=== PATIENT | male | born 1970 | race Caucasian/White ===

== ENCOUNTER 2018-09-26 10:55 | Day surgery (SDC) | payer BC, SELFPAY ==
[2018-09-26 11:09] VITALS: BP 142/90; PULSE 70; RESP 20; TEMP 36.3; O2SAT 97
[2018-09-26] MEDS: Lactated Ringers 1,000 ML 30 ML IV (11:33)
--- NOTE | 2018-09-26 11:36 | HPE_ITS ---
Date of service: 09/26/18 Time of Service: 11:31 Assessment and Plan (1) Screening for colon cancer: Current visit: No Status: Acute I reviewed the colonoscopy procedure with , and discussed the risks of the procedure with him. All his questions were answered to his satisfaction. Consent was obtained to proceed with colonoscopy. History of Present Illness Chief Complaint: Personal history of colon polyps Narrative: 47 y/o Male presents for colonoscopy pre-op. Last Colonoscopy was performed several years prior (date unknown) which was remarkable for polyps. Denies family history of colon cancer. Denies changes in bowel habits. Reports occasional blood smeared stools associated with hemorrhoids. Denies diarrhea, constipation, melena. He denies constituitional symptoms. Review of Systems Review of Systems Constitutional: Denies fever, chills, malaise, fatigue, weight loss, sweating; Neurological: denies headache, seizures, syncope; weakness Eyes: denies loss of vision, double vision, blurry vision,; Ears,nose, throat: denies loss of hearing, tinnitus, vertigo, epistaxis, hoarseness, throat swelling. Cardiac: denies chest pain with exertion, palpation, pain shooting from chest into arm. Respiratory: denies cough, sputum production, chest congestion, wheezing. Gastrointestinal: denies abdominal pain, dysphagia, nausea, vomiting, hematamesis, hematochezia, melena. Genitourinary: denies frequency, urgency, hesitancy, incontinence, and dysuria. Musculoskeletal: denies arthralgia, myalgia, fracture, joint pain, joint swelling, back pain. Psychiatric: denies anxiety, depression, difficulty concentrating, difficulty sleeping, irritability. All systems reviewed & are unremarkable except as noted in HPI and below PFSH Family History Other Diabetes Heart disease Medical History Anxiety Disequilibrium Hyperlipidemia Hypertension JESSICA (obstructive sleep apnea) Obesity Skin mole Vertigo Social History Smoking/Tobacco Use Status: Never Meds Home Medications Medication Instructions Recorded Confirmed Type bupropion HCl 300 mg PO DAILY tab-cap 07/29/14 09/26/18 History escitalopram oxalate [Lexapro] 10 mg PO DAILY tab-cap 07/29/14 09/26/18 History lisinopril 10 mg PO DAILY tab-cap 03/22/16 09/26/18 History aspirin [Aspirin Low-Strength] 81 mg PO DAILY tab-cap 05/01/16 09/26/18 History multivitamin [Men's Multi-Vitamin] 1 ea PO 05/01/16 08/11/18 History Allergies Allergy/AdvReac Type Severity Reaction Status Date / Time No Known Allergies Allergy Verified 09/26/18 11:14 Exam Narrative Exam Narrative: General: Awake, alert, oriented x 3, well groomed Neurological: cranial nerves II-12 grossly intact, moves all extremities, no focal deficits. HEENT: Normacephalic, atruamatic, pupils are equal, round, and reactive to light , extraocular muscles intact, mucousa moist and pink. Neck: normal visual inspection, supple, trachea midline. Heart: [regular rate, rhythm] Respiratory: No wheezing, cough, sputum production, or chest congestion. breathing unlabored. Abdomen: Soft, non-tender, non-distended, no hernias. Extremities: no cyanosis, clubbing or edema. Integument: warm, dry, normal turgor, no rashes, or lesion. Results Last Vital Signs Temp 36.3 C L 09/26/18 11:09 Pulse 70 09/26/18 11:09 Resp 20 09/26/18 11:09 BP 142/90 H 09/26/18 11:09 Pulse Ox 97 09/26/18 11:09
--- NOTE | 2018-09-26 12:15 | COLE_ITS ---
Date of service: 09/26/18 Time of Service: 12:14 Colonoscopy Report Date of procedure: 09/26/18 Pre-op diagnosis general: Personal history of colon polyps Post-op diagnosis procedure note: other (Normal colonoscopy to the cecum) Procedure: Colonoscopy to the cecum Surgeon: Williams Valladares Anesthesia proc note operative: MAC (William Yadav CRNA; ASA 2 Mallampati class II) Estimated blood loss (mL): 0 Pathology: none sent Complications: None Disposition: same day Indications: 47 y/o Male presents for colonoscopy pre-op. Last Colonoscopy was performed several years prior (date unknown) which was remarkable for polyps. Denies family history of colon cancer. Denies changes in bowel habits. Reports occasional blood smeared stools associated with hemorrhoids. Denies diarrhea, constipation, melena. He denies constituitional symptoms. Prep: Miralax/Dulcolax (Prep quality good) Procedure Start Time: 10:25 Procedure End Time: 10:45 Retraction Time: 11 Findings: In examining the colon from cecum to anus, no abnormalities were noted. It sounds like Procedure Description: The patient was seen in the day surgery waiting area. His identification was confirmed, and procedure checked. He was then brought to the procedure room. Monitoring for telemetry, blood pressure, oxygen saturation, and end tidal CO2 monitoring were applied. An appropriate time out was performed to confirm, identification, allergies, medication, procedure, was performed. Sedation was titrated for affect by the INSIDE PLANT SUPERVISOR; Once adequate sedation was achieved, I performed a inspection of the external perineum, and a digitial rectal examination. No significant external abnormalities were noted. On digital rectal examination, there was no blood, no masses, good rectal tone, and a normal prostate. I advanced the colonoscope from the anus to the cecum under direct visualization. The cecum was identified by the ileal-cecal valve, and the appendiceal orifice. The scope was then withdrawn in circumferential manner from the cecum to the rectum. No abnormalites were noted in the colon. The scope was then withdrawn into the rectum, and retroflexed. No abnormalities were noted of the rectum or anorectal junction. The scope was then withdrawn, terminating the procedure. There were no complications during the procedure, and the patient tolerated the procedure well. He was returned to the day surgery recovery area in good condition. Plan: Will continue with routine screening for colorectal cancer according to current consensus guidelines, which is currently 10 years.
--- NOTE | 2018-09-26 12:59 | W.PM.DSUDISC ---
Discharge Plan Disposition Patient Disposition: HOME Condition: Good Discharge Details Reason For Visit: Colorectal cancer screening Attending Provider: Williams Valladares Primary Care Provider: George Crenshaw Home Meds and New Rx's Prescriptions: Continue bupropion HCl 150 MG tablet extended release 12 hr 300 mg PO DAILY RF: 0 escitalopram oxalate [Lexapro] 10 MG tablet 10 mg PO DAILY RF: 0 lisinopril 5 MG tablet 10 mg PO DAILY RF: 0 multivitamin [Men's Multi-Vitamin] 1 EACH tablet 1 ea PO RF: 0 aspirin [Aspirin Low-Strength] 81 MG tablet,chewable 81 mg PO DAILY RF: 0 Discharge Instructions Instructions: Colonoscopy (DC) Stand Alone Forms: Colonoscopy Post Instructions, Tello [place] (DSU) Activity:: Activity as Tolerated Diet:: As Tolerated Discharge Orders Discharge Orders: Discharge Order (Routine); Ordered 09/26/18 Ordered By: Williams Valladares DS: Diagnosis Discharge Diagnosis (1) Screening for colon cancer: Status: Acute Asessment and Plan: Colonoscopy performed: Colonoscopy Report Date of procedure: 09/26/18 Pre-op diagnosis general: Personal history of colon polyps Post-op diagnosis: other (Normal colonoscopy to the cecum) Procedure: Colonoscopy to the cecum Surgeon: Williams Valladares Anesthesia: MAC (William Yadav CRNA; ASA 2 Mallampati class II) Estimated blood loss (mL): 0 Pathology: none sent Complications: None Disposition: same day Indications: 47 y/o Male presents for colonoscopy pre-op. Last Colonoscopy was performed several years prior (date unknown) which was remarkable for polyps. Denies family history of colon cancer. Denies changes in bowel habits. Reports occasional blood smeared stools associated with hemorrhoids. Denies diarrhea, constipation, melena. He denies constituitional symptoms. Prep: Miralax/Dulcolax (Prep quality good) Procedure Start Time: 10:25 Procedure End Time: 10:45 Retraction Time: 11 Findings: In examining the colon from cecum to anus, no abnormalities were noted. It sounds like Procedure Description: The patient was seen in the day surgery waiting area. His identification was confirmed, and procedure checked. He was then brought to the procedure room. Monitoring for telemetry, blood pressure, oxygen saturation, and end tidal CO2 monitoring were applied. An appropriate time out was performed to confirm, identification, allergies, medication, procedure, was performed. Sedation was titrated for affect by the RIDES ATTENDANT; Once adequate sedation was achieved, I performed a inspection of the external perineum, and a digitial rectal examination. No significant external abnormalities were noted. On digital rectal examination, there was no blood, no masses, good rectal tone, and a normal prostate. I advanced the colonoscope from the anus to the cecum under direct visualization. The cecum was identified by the ileal-cecal valve, and the appendiceal orifice. The scope was then withdrawn in circumferential manner from the cecum to the rectum. No abnormalites were noted in the colon. The scope was then withdrawn into the rectum, and retroflexed. No abnormalities were noted of the rectum or anorectal junction. The scope was then withdrawn, terminating the procedure. There were no complications during the procedure, and the patient tolerated the procedure well. He was returned to the day surgery recovery area in good condition. Plan: Will continue with routine screening for colorectal cancer according to current consensus guidelines, which is currently 10 years.
[2018-09-26 13:22] VITALS: BP 132/86; PULSE 64; RESP 18; TEMP 36.4; O2SAT 98
== END 2018-09-26 13:45 | disposition home or self-care (01) ==
PROVIDERS: PCP Internal Medicine; Visit Provider Surgery
PROC: 0DJD8ZZ Inspection of Lower Intestinal Tract, Via Natural or Artificial Opening Endoscopic (ICD-10-PCS; CPT 45378; principal; 2018-09-26 12:45)
DX: Z12.11 Encounter for screening for malignant neoplasm of colon (principal); Z86.010 Personal history of colon polyps
CPT/HCPCS: 45378; NC

== ENCOUNTER 2019-01-12 16:36 | Outpatient (REF) | payer BC, SELFPAY ==
[2019-01-12 22:26] LABS: Anion Gap 7.5 mmol/L (3-11); BUN 21 mg/dL (7-18); CO2 29.5 mmol/L (21.0-32.0); CREATININE 1.14 mg/dL (0.70-1.30); Calcium 9.3 mg/dL (8.5-10.1); Chloride 101 mmol/L (98-107); Cholesterol 219 mg/dL (50-200); Glucose 86 mg/dL (70-100); HDL Cholesterol 38 mg/dL (40-60); LDL CHOLESTEROL 156 mg/dL (<100); Potassium 4.2 mmol/L (3.5-5.1); Sodium 138 mmol/L (136-145); Triglyceride 143 mg/dL (30-150)
== END 2019-01-12 16:56 ==
LOC: NCHCN 16:36
PROVIDERS: PCP Internal Medicine; Visit Provider Internal Medicine
DX: I10 Essential (primary) hypertension (principal); E78.5 Hyperlipidemia, unspecified; R42 Dizziness and giddiness; F41.9 Anxiety disorder, unspecified; E66.9 Obesity, unspecified
CPT/HCPCS: 80048; 80061; 83721

== ENCOUNTER 2019-03-23 09:58 | Outpatient (REF) | payer BC, SELFPAY ==
[2019-03-23 13:42] LABS: Abs Immature Grans 0.02 k/cumm (0.0-0.09); Absolute Basophil Count 0.03 k/cumm (0.0-0.2); Absolute Eosinophil Count 0.17 k/cumm (0.0-0.7); Absolute Lymphocyte Count 1.63 k/cumm (1.2-3.4); Absolute Monocyte Count 0.59 k/cumm (0.11-0.7); Absolute Neutrophil Count 3.43 k/cumm (1.2-6.7); Basophils % 0.5; Eosinophils % 2.9; HCT 45.8 % (40.0-50.0); Immature Grans % 0.3; Lymphocytes % 27.8; Mean Corp. HGB Concentration 32.8 g/dL (32.0-36.0); Mean Corpuscular Hemoglobin 31.8 pg (27.0-33.0); Mean Corpuscular Volume 97.2 fL (80-95); Mean Platelet Volume 10.5 fL (8.0-11.0); Monocytes % 10.1; Neutrophils % 58.4; Platelet Count 496 x1000/uL (130-400); RBC 4.71 m/cumm (4.50-6.00); RBC Distribution Width 13.8 % (11.8-14.1); White Blood Cell Count 5.87 k/cumm (4.4-10.8)
[2019-03-23 13:53] LABS: ALT 55 U/L (12-78); AST 44 U/L (15-37); Albumin 4.1 g/dL (3.4-5.0); Alkaline Phosphatase 54 U/L (46-116); BUN 27 mg/dL (7-18); Bilirubin, Total 0.8 mg/dL (0.2-1.0); CREATININE 1.16 mg/dL (0.70-1.30); Calcium 9.4 mg/dL (8.5-10.1); Chloride 102 mmol/L (98-107); Glucose 82 mg/dL (70-100); LDH 174 U/L (85-227); Sodium 137 mmol/L (136-145); Total Protein 7.6 g/dL (6.4-8.2)
[2019-03-23 14:00] LABS: Mono Screening Negative (Negative)
== END 2019-03-23 10:18 ==
LOC: NCHCN 09:58
PROVIDERS: PCP Internal Medicine; Visit Provider Internal Medicine
DX: M54.2 Cervicalgia (principal); J35.1 Hypertrophy of tonsils; H91.90 Unspecified hearing loss, unspecified ear
CPT/HCPCS: 80053; 83615; 85025; 86308

== ENCOUNTER 2020-07-22 12:44 | Outpatient (REF) | payer BC, SELFPAY ==
[2020-07-22 21:31] LABS: HCT 47.8 % (40.0-50.0); HGB 16.4 g/dL (13.5-17.5); MCH 32.3 pg (27.0-33.0); MCHC 34.3 % (32.0-36.0); MCV 94.1 fL (80-95); MPV 10.6 fL (8.0-11.0); Platelet Count 515 10^3/uL (130-400); RBC 5.08 10^6/uL (4.36-5.78); RDW-SD 41.9 fL; WBC 6.71 10^3/uL (4.4-10.8)
[2020-07-22 21:37] LABS: Anion Gap 13.1 mmol/L (3-11); BUN 18 mg/dL (7-18); CO2 21.9 mmol/L (21.0-32.0); CREATININE 1.21 mg/dL (0.70-1.30); Calcium 9.8 mg/dL (8.5-10.1); Chloride 101 mmol/L (98-107); Glucose 94 mg/dL (74-106); Potassium 4.6 mmol/L (3.5-5.1); Sodium 136 mmol/L (136-145)
== END 2020-07-22 13:04 ==
LOC: NCHCN 12:44
PROVIDERS: PCP Internal Medicine; Visit Provider Internal Medicine
DX: I10 Essential (primary) hypertension (principal); R55 Syncope and collapse; Z86.69 Personal history of other diseases of the nervous system and sense organs
CPT/HCPCS: 80048; 85027

== ENCOUNTER 2021-09-01 08:49 | Outpatient (REF) | payer BC, SELFPAY ==
[2021-09-01 14:22] LABS: Abs Immature Grans 0.01 10^3/uL (0.0-0.06); Absolute Basophil Count 0.03 10^3/uL (0.0-0.2); Absolute Eosinophil Count 0.14 10^3/uL (0.0-0.7); Absolute Lymphocyte Count 1.38 10^3/uL (1.2-3.4); Absolute Monocyte Count 0.55 10^3/uL (0.1-0.8); Absolute Neutrophil Count 3.17 10^3/uL (1.2-6.7); Basophils % 0.6; Eosinophils % 2.7; HCT 47.4 % (40.0-50.0); HGB 15.6 g/dL (13.5-17.5); Immature Grans % 0.2; Lymphocytes % 26.1; MCH 31.7 pg (27.0-33.0); MCHC 32.9 % (32.0-36.0); MCV 96.3 fL (80-95); MPV 10.3 fL (8.0-11.0); Monocytes % 10.4; Nucleated RBC 0 %; Platelet Count 464 10^3/uL (130-400); RBC 4.92 10^6/uL (4.36-5.78); RDW 12.7 % (11.8-14.1); RDW-SD 45.5 fL; WBC 5.28 10^3/uL (4.4-10.8)
[2021-09-01 16:04] LABS: Anion Gap 6.9 mmol/L (3-11); BUN 23 mg/dL (7-18); CO2 30.1 mmol/L (21.0-32.0); CREATININE 1.3 mg/dL (0.70-1.30); Calcium 9.4 mg/dL (8.5-10.1); Chloride 102 mmol/L (98-107); Estimated GFR 57.75 (mL/min/1.73m2); Glucose 118 mg/dL (74-106); Potassium 4.8 mmol/L (3.5-5.1); Sodium 139 mmol/L (136-145)
== END 2021-09-01 08:50 | disposition home or self-care (01) ==
LOC: NCHCN 08:49
PROVIDERS: PCP Internal Medicine; Visit Provider Family Medicine
DX: I10 Essential (primary) hypertension (principal); Z00.00 Encounter for general adult medical examination without abnormal findings
CPT/HCPCS: 80048; 85025

== ENCOUNTER 2022-02-21 09:06 | Outpatient (REF) | payer BC, SELFPAY ==
[2022-02-21 17:14] LABS: Calculated LDL 147 mg/dL (<100); Cholesterol 216 mg/dL (<200); HDL Cholesterol 48 mg/dL (40-60); Triglyceride 109 mg/dL (<150)
== END 2022-02-21 09:07 | disposition home or self-care (01) ==
LOC: NCHCN 09:06
PROVIDERS: PCP Family Medicine; Visit Provider Family Medicine
DX: I10 Essential (primary) hypertension (principal); E78.5 Hyperlipidemia, unspecified
CPT/HCPCS: 80061

== ENCOUNTER 2022-11-14 14:21 | Outpatient (REF) | payer BC, SELFPAY ==
[2022-11-14 14:41] LABS: Anion Gap 9.1 mmol/L (3-11); BUN 18 mg/dL (7-18); CO2 26.9 mmol/L (21.0-32.0); CREATININE 1.1 mg/dL (0.70-1.30); Calcium 9.5 mg/dL (8.5-10.1); Chloride 104 mmol/L (98-107); Estimated GFR 79.77 (mL/min/1.73m2); Glucose 87 mg/dL (74-106); Potassium 4.8 mmol/L (3.5-5.1); Sodium 140 mmol/L (136-145)
== END 2022-11-14 14:22 | disposition home or self-care (01) ==
LOC: NCHCN 14:21
PROVIDERS: PCP Family Medicine; Visit Provider Family Medicine
DX: I10 Essential (primary) hypertension (principal)
CPT/HCPCS: 80048

== ENCOUNTER 2023-12-25 07:40 | Outpatient (REF) | payer BC, SELFPAY ==
[2023-12-25 21:59] LABS: Anion Gap 9.9 mmol/L (3-11); BUN 15 mg/dL (7-18); CO2 29.1 mmol/L (21.0-32.0); CREATININE 1.1 mg/dL (0.70-1.30); Calcium 9.7 mg/dL (8.5-10.1); Chloride 102 mmol/L (98-107); Estimated GFR 79.28 (mL/min/1.73m2); Glucose 95 mg/dL (74-106); Potassium 3.9 mmol/L (3.5-5.1); Sodium 141 mmol/L (136-145)
== END 2023-12-25 07:41 ==
LOC: NCHCN 07:40
PROVIDERS: PCP Family Medicine; Visit Provider Family Medicine
DX: I10 Essential (primary) hypertension (principal)
CPT/HCPCS: 80048

== ENCOUNTER 2024-04-11 06:12 | Emergency (ER) | payer BC, SELFPAY ==
[2024-04-11] VITALS (12 sets, daily range): BP systolic 123–154; BP diastolic 63–85; PULSE 16–66; RESP 16–60; TEMP 35–36.5; O2SAT 98
--- NOTE | 2024-04-11 06:15 | DI.CT_ITS ---
Exam(s) CT THORAX ABD/PEL CTA EXAM: CT THORAX ABD/PEL CTA CLINICAL HISTORY: Back/flank pain eval dissection, kidney stone. TECHNIQUE: Imaging Protocol: Axial CT angiography was performed with multi-slice acquisition and m ulti-planar and/or 3D reconstructions. CONTRAST MATERIAL: Intravenous: Omnipaque 350 Contrast volume:100 mL Oral: / no COMPARISON: No exams were available for comparison FINDINGS: CHEST: Pulmonary Arteries: No evidence of filling defect to suggest pulmonary emboli. Tracheobronchial tree: Patent where visualized. Mediastinum and Yuni: No dominant adenopathy or fluid collection. Small hiatal hernia. Pulmonary parenchyma: No consolidation or dominant measurable mass. No architectural distortion. Pleura: No effusion or pneumothorax. Heart: The heart is not dilated. No coronary artery calcifications are seen. Aorta: Thoracic aorta non-dilated. No evidence of dissection. No significant atherosclerotic becker es. Bones: Unremarkable for age. Tubes, Catheters, and Lines: None ABDOMEN AND PELVIS: Abdomen: Celiac axis/mesenteric arteries: No evidence of occlusion or significant stenosis. Renal Arteries: No evidence of occlusion or significant stenosis. There is a single renal artery per fusing the right kidney. Two left renal arteries. Aorta: No evidence of occlusion or significant stenosis. No aneurysm or dissection. No significa nt atherosclerotic changes. Pelvis: Iliac Arteries: No evidence of occlusion or significant stenosis. Common Femoral Arteries: No evidence of occlusion or significant stenosis. ABDOMEN and PELVIS: Liver: Normal density. No measurable mass. Portal, Superior Mesenteric, and Splenic Veins: Unremarkable. Gallbladder and Biliary Tract: No radiodense calculus or dilation. Pancreas: Normal density, no abnormal calcifications or inflammatory process. Spleen: Normal. Adrenals: No masses seen. Kidneys: Normal size, contour and axis. 3 millimeter calculus in the distal left ureter causing mild left hydronephrosis. There is perinephric stranding. No masses seen. Bowel: No obstruction or bowel wall thickening. Appendix is unremarkable. Large amount of stool in re ctum. Normal quantity of stool elsewhere. Peritoneal Cavity: No ascites, collection or mesenteric inflammatory response. Lymph Nodes: Within normal limits. Bones: Unremarkable. Soft Tissues: Small fat containing bilateral inguinal hernias. Bladder: Symmetric distention, no gross wall thickening. Reproductive Organs: Unremarkable as visualized. Lymph Nodes: Within normal limits. IMPRESSION: Normal CT Angiogram of the chest, abdomen and pelvis. 3 millimeter stone at the distal left ureter causing mild left hydronephrosis. There is mild perinep hric stranding. Large quantity of stool in the rectum. RADIATION DOSE DELIVERED: Total DLP DATA REPOSITORY: All CT scans at this facility are submitted to the National Radiology Data Registry (NRDR) Dose Index Registry (DIR) with the [employer] (A[employer]). RADIATION OPTIMIZATION: All CT scans at this facility use at least one of these dose optimization te chniques: automated exposure control; mA and/or kV adjustment per patient size (includes targeted exa ms where dose is matched to clinical indication); or iterative reconstruction.
--- NOTE | 2024-04-11 06:15 | RT.EKG_ITS ---
APPROVED REPORT Exam: Resting ECG Reason for Exam: abdominal pain Patient Location: E HR:60 bpm ECG Measurements Heart Rate 60 AXIS AK 146 P 66 QRSd 92 QRS 72 QT 441 T 62 QTc 442 Conclusion Sinus rhythm...normal P axis, V-rate 60- 99 otherwise unable to interpret 2/t artifact
--- NOTE | 2024-04-11 06:15 | RT.EKG_ITS ---
APPROVED REPORT Exam: Resting ECG Reason for Exam: flank/back pain Patient Location: E HR:63 bpm ECG Measurements Heart Rate 63 AXIS NE 168 P 56 QRSd 91 QRS 70 QT 410 T 54 QTc 419 Conclusion Sinus rhythm...normal P axis, V-rate 60- [address] elevation, anterolateral leads...ST >0.06mV, I aVL V2-V6 Does not meet STEMI criteria No concerning changes from prior 12/21/05
[2024-04-11] MEDS: Ondansetron 4 MG/2 ML VIAL IVP (06:24)
[2024-04-11] MEDS: fentaNYL 100 MCG/2 ML VIAL 50 MCG IVP ×2 (06:24→06:38)
[2024-04-11] MEDS: Normal Saline 1,000 ML 1000 ML IV (06:25)
--- NOTE | 2024-04-11 06:28 | ED.GENADUL_ITS ---
Discharge Plan Discharge Details Chief Complaint: FlankPain Primary Care Provider: Kristian Irizarry ED Provider: Larissa Mishra Home Meds and New Rx's Prescriptions: No Action bupropion HCl 150 MG tablet extended release 12 hr 300 mg PO DAILY escitalopram oxalate [Lexapro] 10 MG tablet 10 mg PO DAILY lisinopril 5 MG tablet 10 mg PO DAILY HPI General Mode of arrival: ambulatory . Date/Time Provider Initiated Documentation: 04/11/24 06:18 . Limitations to Documentation: no limitations . Information obtained by: patient . HPI Narrative: 53yo M with hx HTN, JESSICA, presenting with acute left flank/back pain. Woke him at 0500 this morning with severe pain, sharp, in his left side radiating into his back. Has had similar pain a few times in the past few days but never this bad. Associated nausea, no vomiting. Sweaty. No blood in urine or stool. No fevers or chills. No numbness, tingling, or weakness. Was in his usual state of health yesterday. Related Data Home Medications Medication Instructions Recorded Confirmed bupropion HCl 150 mg tablet,12 hr 300 mg PO DAILY 07/29/14 04/11/24 sustained-release escitalopram oxalate 10 mg tablet 10 mg PO DAILY 07/29/14 04/11/24 (Lexapro) lisinopril 5 mg tablet 10 mg PO DAILY 03/22/16 04/11/24 Allergies Allergy/AdvReac Type Severity Reaction Status Date / Time No Known Allergies Allergy Verified 01/01/24 14:00 General Stated Complaint: FlankPain KATHERINE: 3 Review of Systems Narrative: see HPI Exam Narrative Exam Narrative: General: Alert, diaphoretic, moderate distress Head: Normocephalic, atraumatic Neck: Trachea midline, ?Neck supple. ENT: ?MMM.? Cardiac: ?RRR, no murmurs appreciated. Equal radial pulses bilaterally. Resp: No respiratory distress. CTAB. Abd: ?Soft, non-distended, nontender : ?No suprapubic tenderness. + CVA tenderness on left. Extremities: ?No deformities.? No peripheral edema. Neurologic: GCS 15. ? Moves all extremities freely against gravity Course Vital Signs Vital signs: Vital Signs Temperature 35 C L 04/11/24 06:17 Pulse 16 L 05/25/24 06:17 Respiratory Rate 60 H 04/11/24 06:17 Blood Pressure 126/69 04/11/24 06:17 Pulse Oximetry 98 04/11/24 06:17 Temperature 35 C L 04/11/24 06:17 Pulse 16 L 04/11/24 06:17 Respiratory Rate 60 H 04/11/24 06:17 Respiratory Effort Normal 04/11/24 06:19 Blood Pressure 126/69 04/11/24 06:17 Pulse Oximetry 98 04/11/24 06:17 Oxygen Delivery Method Room Air 04/11/24 06:17 Oxygen Flow Rate 0 04/11/24 06:17 Pain Level 10 04/11/24 06:17 Medical Decision Making 53yo M with hx HTN, JESSICA, presenting with acute left flank/back pain. Woke him at 0500 this morning with severe pain, sharp, in his left side radiating into his back. Has had similar pain a few times in the past few days but never this bad. Associated nausea, no vomiting. Vital signs reassuring on arrival, no tachycardia or hypertension. On exam he is in significant pain, diaphoretic. Denies chest pain or shortness of breath, pain does localize to his left side however he had difficultly pinpointing where. Highly suspicious for kidney stone however given lack of prior stones as well as severity of presentation with poorly localized symptoms will also evaluate for acute coronary syndromes/cardiac abnormalities/aortic dissection with EKG, labs, imaging. Will treat with fentanyl & zofran followed by morphine, IV tylenol, toradol if initial ACS workup negative. Initial EKG with large amount of artifact, is NSR. Repeat EKG NSR, slight ST elevations in V2-V6 which do not meet STEMI criteria and are also present on prior EKG 12/21/05. Labs reviewed as below, CBC with no leukocytosis or anemia, CMP with normal electrolytes and no indication of liver or kidney injury, lipase negative (not pancreatitis), troponin negative. CT independently reviewed, no aortic dissection or severe hydronephrosis on my view, radiology read pending. On reassessment his pain has improved but is still severe. No longer diaphoretic. Will add toradol, additional dose of morphine. Signed out to oncoming physician, plan to followup CT read, UA, and pain control. Lab Data Lab results reviewed: Yes I reviewed the patient's lab results. Labs: Laboratory Tests Range/Units 05/25/ 06:25 WBC (4.4-10.8) 10^3/uL 6.39 RBC (4.36-5.78) 10^6/uL 4.95 Hgb (13.5-17.5) g/dL 15.8 Hct (40.0-50.0) % 46.6 MCV (80-95) fL 94 MCH (27.0-33.0) pg 31.9 MCHC (32.0-36.0) % 33.9 RDW (11.8-14.1) % 13.3 Plt Count (130-400) 10^3/uL 479 H MPV (8.0-11.0) fL 10.1 Immature Gran % % 0.3 Neutrophils % % 45.4 Lymphocytes % % 39.1 Monocytes % % 12.2 Eosinophils % % 2.7 Basophils % % 0.3 Nucleated RBC % (0.0-0.3) % 0.0 Absolute Neutrophils (1.2-6.7) 10^3/uL 2.90 Absolute Lymphocytes (1.2-3.4) 10^3/uL 2.50 Absolute Monocytes (0.1-0.8) 10^3/uL 0.78 Absolute Eosinophils (0.0-0.7) 10^3/uL 0.17 Absolute Basophils (0.0-0.2) 10^3/uL 0.02 Sodium (136-145) mmol/L 138 Potassium (3.5-5.1) mmol/L 4.4 Chloride (98-107) mmol/L 102 Carbon Dioxide (21.0-32.0) mmol/L 21.7 Anion Gap (3-11) mmol/L 14.3 H BUN (7-18) mg/dL 33 H Creatinine (0.70-1.30) mg/dL 1.3 Est GFR (CKD-EPI 2020) (mL/min/1.73m2) 64.88 Glucose (74-106) mg/dL 130 H Calcium (8.5-10.1) mg/dL 9.1 Total Bilirubin (0.2-1.0) mg/dL 0.9 AST (15-37) U/L 21 ALT (16-63) U/L 33 Alkaline Phosphatase (46-116) U/L 57 Troponin I (< or =60) ng/L < 50 Total Protein (6.4-8.2) g/dL 7.8 Albumin (3.4-5.0) g/dL 4.1 Quality:SDOH Health Related Social Needs: No Data to Display PFSH All Active Problems Otitis externa, left (Acute) History of excessive cerumen (Acute) Impacted cerumen of left ear (Acute) Hx of hernia repair (Chronic) 2016 Tonsillar hypertrophy (Acute) Neck pain on left side (Acute) Hearing impairment (Acute) Impacted cerumen (Acute) Conductive hearing loss, external ear (Acute) Migraine aura without headache (Acute 06/06/16) Screening for colon cancer (Acute) The patient is here for Colonoscopy pre-op. His last screening date is unknown that was remarkable for polyps. He has no family history of colon cancer. He has not had any bowel habit changes. Discussed colonoscopy bowel prep as well as the procedure. Discussed possible complications of the procedure; bleeding, perforation and sedation/medication risks. Questions were answered to patient?s satisfaction. No guarantees were implied or given. Medical History COVID-19 Obesity Hypertension Disequilibrium Vertigo Hyperlipidemia Anxiety Skin mole JESSICA (obstructive sleep apnea) Surgical History H/O colonoscopy (09/26/18) dr keller, no abnormalities, repeat 10 years Family History Father Hyperlipidemia Mother Diabetes Hypertension Stroke Other Heart disease Social History Smoking/Tobacco Use Status: Never Smoking risk assessment performed?: Yes Alcohol Intake: current Alcohol Intake frequency: a few times a month Drug use: Never Household members: spouse Pets and animals: Yes Pets and animals: bird(s) What is your relationship status?: Panel score (0-1 are the most socially isolated patients): 1
[2024-04-11] MEDS: MORPHine 4 MG/ML SYR IVP (06:31)
[2024-04-11] MEDS: ACETAMINOPHEN 1,000 MG/100 ML BTL 400 MG IVPB (06:38)
--- NOTE | 2024-04-11 06:38 | NUR.NOTE ---
Patient needed to have pain controlled before doing second EKG per RN assigned to him.
[2024-04-11 06:40] LABS: Abs Immature Grans 0.02 10^3/uL (0.0-0.06); Absolute Basophil Count 0.02 10^3/uL (0.0-0.2); Absolute Eosinophil Count 0.17 10^3/uL (0.0-0.7); Absolute Monocyte Count 0.78 10^3/uL (0.1-0.8); Basophils % 0.3 %; Eosinophils % 2.7 %; HCT 46.6 % (40.0-50.0); HGB 15.8 g/dL (13.5-17.5); Immature Grans % 0.3 %; Lymphocytes % 39.1 %; MCH 31.9 pg (27.0-33.0); MCHC 33.9 % (32.0-36.0); MCV 94 fL (80-95); MPV 10.1 fL (8.0-11.0); Monocytes % 12.2 %; Neutrophils % 45.4 %; Platelet Count 479 10^3/uL (130-400); RBC 4.95 10^6/uL (4.36-5.78); RDW 13.3 % (11.8-14.1); RDW-SD 46.7 fL; WBC 6.39 10^3/uL (4.4-10.8)
[2024-04-11 07:04] LABS: ALT 33 U/L (16-63); AST 21 U/L (15-37); Albumin 4.1 g/dL (3.4-5.0); Alkaline Phosphatase 57 U/L (46-116); Anion Gap 14.3 mmol/L (3-11); BUN 33 mg/dL (7-18); Bilirubin, Total 0.9 mg/dL (0.2-1.0); CO2 21.7 mmol/L (21.0-32.0); CREATININE 1.3 mg/dL (0.70-1.30); Calcium 9.1 mg/dL (8.5-10.1); Chloride 102 mmol/L (98-107); Estimated GFR 64.88 (mL/min/1.73m2); Glucose 130 mg/dL (74-106); Potassium 4.4 mmol/L (3.5-5.1); Sodium 138 mmol/L (136-145); Total Protein 7.8 g/dL (6.4-8.2); Troponin I < 50 ng/L (< or =60)
[2024-04-11] MEDS: Omnipaque 350 MG/ML 100 ML BTL IJ (07:11)
[2024-04-11] MEDS: Normal Saline - Diluent 50 ML VIAL IJ (07:13)
[2024-04-11 07:16] LABS: Lipase 35 U/L (16-77)
[2024-04-11] MEDS: MORPHine 10 MG/ML VIAL 6 MG IVP (07:35)
[2024-04-11] MEDS: Ketorolac 15 MG/ML VIAL IVP ×2 (07:35→09:16)
--- NOTE | 2024-04-11 07:50 | DI.VRAD_ITS ---
PROCEDURE INFORMATION: Exam: CTA Chest With Contrast CTA Abdomen and Pelvis With Contrast Exam date and time: 04/11/2024 7:03 AM Age: 53 years old Clinical indication: Other: Back / flank; Abdominal pain; Other: Not specifed TECHNIQUE: Imaging protocol: Computed tomographic angiography of the chest with contrast. Exam focused on the arteries. Computed tomographic angiography of the abdomen and pelvis with contrast. Exam focused on the arteries. 3D rendering (Not supervised by radiologist): MIP and/or 3D reconstructed images were created by the technologist. COMPARISON: No relevant prior studies available. FINDINGS: VASCULATURE: Pulmonary arteries: No pulmonary emboli. Aorta: No aortic aneurysm or dissection seen. Celiac trunk and mesenteric arteries: No occlusion or significant stenosis. Renal arteries: No occlusion or significant stenosis. Right iliac arteries: No occlusion or significant stenosis. Left iliac arteries: No occlusion or significant stenosis. CHEST: Lungs: No consolidation. Pleural spaces: No pleural effusion. Heart: No pericardial effusion. Diaphragm: Small hiatal hernia. ABDOMEN AND PELVIS: Liver: No focal hepatic lesion demonstrated. Gallbladder and bile ducts: No calcified stones. Pancreas: No evidence for acute pancreatitis. Spleen: No splenomegaly. Adrenal glands: Indeterminate left adrenal nodule. Consider follow-up. Kidneys and ureters: Hypodense lesion in the right kidney, statistically likely to represent a cyst but indeterminate on this examination. Cannot exclude hyperdense cyst or solid lesion. Consider nonemergent followup. No right hydronephrosis. Left hydroureteronephrosis with perinephric stranding. 3 mm calculus in the distal left ureter. Delayed images are not submitted. Low attenuation lesion in the left kidney too small to accurately characterize on CT. Stomach and bowel: No intestinal obstruction is evident. Fluid in nondilated small bowel, nonspecific. Retained fecal material is present in the colon. Areas of apparent mural thickening in the colon commensurate with underdistention. The cecum is interposed anterior to the transverse colon. Appendix: No evidence of appendicitis. Intraperitoneal space: No free air. Urinary bladder: No mass. Reproductive: Unremarkable as visualized. Lymph nodes: No enlarged lymph nodes. Bones/joints: No acute fracture. Soft tissues: Small fat containing inguinal hernias. IMPRESSION: 1. No aortic aneurysm or dissection seen. 2. Obstructing left ureteral calculus. Perinephric stranding may be secondary to obstruction. Cannot exclude caliceal rupture. Delayed images not submitted. 3. Additional findings as above. Dictated and Authenticated by: Lisset Lewis MD. Ordering:BREANN Dias MD
--- NOTE | 2024-04-11 08:35 | ED.PROG_ITS ---
Date of service: 04/11/24 Time of Service: 08:35 Medical Decision Making Care was signed out by Dr. Mishra. Please see her documentation regarding initial ED presentation course. Plan at signout was to follow-up on CT imaging. CT of the chest, abdomen pelvis was obtained to assess for aortic dissection. CT was interpreted by radiology: No dissection. 3 mm stone noted left distal ureter. Incidental findings also noted including adrenal lesion and renal lesion that will require follow-up. Patient was reassessed. Pain significantly improved and he is resting comfortably. Is not been able to yet provide a urine. Plan to await urinalysis before determining disposition. I will initiate treatment with Flomax. All results were discussed with the patient and his . Imaging Data Radiologic Study: Imaging: CT Scan Radiologist's impression: FINDINGS: VASCULATURE: Pulmonary arteries: No pulmonary emboli. Aorta: No aortic aneurysm or dissection seen. Celiac trunk and mesenteric arteries: No occlusion or significant stenosis. Renal arteries: No occlusion or significant stenosis. Right iliac arteries: No occlusion or significant stenosis. Left iliac arteries: No occlusion or significant stenosis. CHEST: Lungs: No consolidation. Pleural spaces: No pleural effusion. Heart: No pericardial effusion. Diaphragm: Small hiatal hernia. ABDOMEN AND PELVIS: Liver: No focal hepatic lesion demonstrated. Gallbladder and bile ducts: No calcified stones. Pancreas: No evidence for acute pancreatitis. Spleen: No splenomegaly. Adrenal glands: Indeterminate left adrenal nodule. Consider follow-up. Kidneys and ureters: Hypodense lesion in the right kidney, statistically likely to represent a cyst but indeterminate on this examination. Cannot exclude hyperdense cyst or solid lesion. Consider nonemergent followup. No right hydronephrosis. Left hydroureteronephrosis with perinephric stranding. 3 mm calculus in the distal left ureter. Delayed images are not submitted. Low attenuation lesion in the left kidney too small to accurately characterize on CT. Stomach and bowel: No intestinal obstruction is evident. Fluid in nondilated small bowel, nonspecific. Retained fecal material is present in the colon. Areas of apparent mural thickening in the colon commensurate with underdistention. The cecum is interposed anterior to the transverse colon. Appendix: No evidence of appendicitis. Intraperitoneal space: No free air. Urinary bladder: No mass. Reproductive: Unremarkable as visualized. Lymph nodes: No enlarged lymph nodes. Bones/joints: No acute fracture. Soft tissues: Small fat containing inguinal hernias. IMPRESSION: 1. No aortic aneurysm or dissection seen. 2. Obstructing left ureteral calculus. Perinephric stranding may be secondary to obstruction. Cannot exclude caliceal rupture. Delayed images not submitted. 3. Additional findings as above. Lab Data Lab results reviewed: Yes I reviewed the patient's lab results. Labs: Laboratory Tests Range/Units 04/11/ 06:25 WBC (4.4-10.8) 10^3/uL 6.39 RBC (4.36-5.78) 10^6/uL 4.95 Hgb (13.5-17.5) g/dL 15.8 Hct (40.0-50.0) % 46.6 MCV (80-95) fL 94 MCH (27.0-33.0) pg 31.9 MCHC (32.0-36.0) % 33.9 RDW (11.8-14.1) % 13.3 Plt Count (130-400) 10^3/uL 479 H MPV (8.0-11.0) fL 10.1 Immature Gran % % 0.3 Neutrophils % % 45.4 Lymphocytes % % 39.1 Monocytes % % 12.2 Eosinophils % % 2.7 Basophils % % 0.3 Nucleated RBC % (0.0-0.3) % 0.0 Absolute Neutrophils (1.2-6.7) 10^3/uL 2.90 Absolute Lymphocytes (1.2-3.4) 10^3/uL 2.50 Absolute Monocytes (0.1-0.8) 10^3/uL 0.78 Absolute Eosinophils (0.0-0.7) 10^3/uL 0.17 Absolute Basophils (0.0-0.2) 10^3/uL 0.02 Sodium (136-145) mmol/L 138 Potassium (3.5-5.1) mmol/L 4.4 Chloride (98-107) mmol/L 102 Carbon Dioxide (21.0-32.0) mmol/L 21.7 Anion Gap (3-11) mmol/L 14.3 H BUN (7-18) mg/dL 33 H Creatinine (0.70-1.30) mg/dL 1.3 Est GFR (CKD-EPI 2020) (mL/min/1.73m2) 64.88 Glucose (74-106) mg/dL 130 H Calcium (8.5-10.1) mg/dL 9.1 Total Bilirubin (0.2-1.0) mg/dL 0.9 AST (15-37) U/L 21 ALT (16-63) U/L 33 Alkaline Phosphatase (46-116) U/L 57 Troponin I (< or =60) ng/L < 50 Total Protein (6.4-8.2) g/dL 7.8 Albumin (3.4-5.0) g/dL 4.1 Lipase (16-77) U/L 35 Quality:[facility] Health Related Social Needs: No Data to Display Sign Out Sign Out Data: Sign Out Comment: 53M severe left sided flank/back pain. So far 100mcg fentanyl, 10mg morphine, 1g tylenol, 15mg toradol for pain (+ zofran). No dissection or severe hydronephrosis on my view of CT scan. Pending CTA read, UA, adequate pain control. Last updated by Larissa Mishra MD at 04/11/24 07:32 Discharge Plan Disposition Patient Disposition: Home Condition: Stable Discharge Details Clinical Impression: Diaphragmatic hernia, Kidney lesion, Left ureteral stone, Lesion of adrenal gland, Inguinal hernia Primary Care Provider: Kristian Irizarry ED Provider: Chuck Roque Home Meds and New Rx's Prescriptions: New tamsulosin [Flomax] 0.4 mg capsule 0.4 mg PO DAILY Qty: 14 0RF Continued bupropion HCl 150 MG tablet extended release 12 hr 300 mg PO DAILY escitalopram oxalate [Lexapro] 10 MG tablet 10 mg PO DAILY lisinopril 5 MG tablet 10 mg PO DAILY Discharge Instructions Instructions: Kidney Stones (ED) Additional Instructions: Please contact your primary care physician to arrange follow-up. Please strain your urine and attempt to collect renal stone. Please take ibuprofen over the counter. Take 600mg by mouth every 6 hours as needed for pain. Please take acetaminophen (tylenol) - 650mg every 6 hours by mouth as needed for pain. Please take Flomax as prescribed. Please follow-up with urology. Call on Saturday to schedule follow-up appointment. Return to the ER immediately for any worsening or new concerning symptoms. Referrals: [facility] [Provider Group] Kristian Irizarry MD [Primary Care Provider] - Discharge Data Discharge Date/Time-TO BE ENTERED AT DEPARTURE: 04/11/24 10:27
[2024-04-11] MEDS: Tamsulosin 0.4 MG CAPCR PO (08:46)
[2024-04-11 08:51] LABS: Bilirubin Negative (Negative); Blood Large (Negative); Clarity Clear (Clear); Glucose Negative (Negative); Ketones Negative (Negative); Leukocyte Esterase Negative (Negative); Nitrite Negative (Negative); Urobilinogen 0.2 mg/dL (Up to 0.2)
[2024-04-11 09:05] LABS: Bacteria Negative HPF (Negative); C & S Indicated? No; Casts Negative LPF (Negative); Crystals Negative HPF (Negative); Epithelial Cells Negative HPF (Negative); Mucus Negative (Negative); RBC >50 HPF (0-2); WBC Negative HPF (0-5)
[2024-04-11 10:05] LABS: Troponin I < 50 ng/L (< or =60)
== END 2024-04-11 10:27 | disposition home or self-care (01) ==
PROVIDERS: Student in an Organized Health Care Education/Training Program; Emergency Provider Student in an Organized Health Care Education/Training Program; PCP Family Medicine
DX: N13.2 Hydronephrosis with renal and ureteral calculous obstruction (principal); E27.8 Other specified disorders of adrenal gland; N28.9 Disorder of kidney and ureter, unspecified; I10 Essential (primary) hypertension; E78.5 Hyperlipidemia, unspecified
CPT/HCPCS: 00123; 36415; 71275; 80053; 83690; 93005; 96374; 96375; 99285; 74174; 81003; 81015; 84484; 85025; 93010; 99284; J0131; J1885; J2270; J2405; J3010; J3490

== ENCOUNTER 2024-04-14 22:22 | Emergency (ER) | payer BC, SELFPAY ==
[2024-04-14 22:36] VITALS: BP 117/68; PULSE 67; RESP 18; TEMP 36.6; O2SAT 96
--- NOTE | 2024-04-14 22:41 | W.ED.GENAD ---
Discharge Plan Disposition Patient Disposition: Home Condition: Good Discharge Details Clinical Impression: Left ureteral stone Primary Care Provider: Kristian Irizarry ED Provider: Maximino Noble Meds and New Rx's Prescriptions: New Oxycodone, 4 Tabs/Btl [Roxicodone, 4 Tabs/Btl] 5 mg PO DISPENSE Qty: 4 0RF Continued bupropion HCl 150 MG tablet extended release 12 hr 300 mg PO DAILY escitalopram oxalate [Lexapro] 10 MG tablet 10 mg PO DAILY lisinopril 5 MG tablet 10 mg PO DAILY tamsulosin [Flomax] 0.4 mg capsule 0.4 mg PO DAILY Qty: 14 0RF Discharge Instructions Instructions: Opioid Safety (ED), Ureteral Stones (ED) Additional Instructions: You were seen for recurrent pain related to your known kidney stone. Overall things are stable although your creatinine did go up some. You should continue the tamsulosin and straining your urine. Continue hydration and alternating acetaminophen with ibuprofen every 3-4 hours. You have been given 4 tablets of oxycodone for severe breakthrough pain. It is a narcotic and can cause sedation. No driving, alcohol use, use of dangerous machinery or equipment while using. Follow-up with primary care as planned. Reach back out to urology clinic. Return to ED for fever, uncontrolled pain, persistent vomiting. Referrals: Jules Guerrero MD [ [facility]YSICIAN] - 1 day HPI General Mode of arrival: ambulatory. Date/Time Provider Initiated Documentation: 04/14/24 22:39. Limitations to Documentation: no limitations. Information obtained by: patient, RN notes reviewed and old records reviewed. HPI Narrative: Patient presents to ED with left lower quadrant abdominal pain that radiates from the back and down into his scrotum. Patient was seen here on Saturday with diagnosis of left distal UVJ stone. He has been alternating acetaminophen with ibuprofen as previously directed. It has an appointment to see primary care tomorrow. Did call urology but has not received a call back. Denies any fever, nausea, vomiting, dysuria or hematuria. Unable to sleep tonight and has had fairly persistent pain all day. Was discharged on tamsulosin. Related Data Home Medications Medication Instructions Recorded Confirmed bupropion HCl 150 mg tablet,12 hr 300 mg PO DAILY 07/29/14 04/14/24 sustained-release escitalopram oxalate 10 mg tablet 10 mg PO DAILY 07/29/14 04/14/24 (Lexapro) lisinopril 5 mg tablet 10 mg PO DAILY 03/22/16 04/14/24 tamsulosin 0.4 mg capsule (Flomax) 0.4 mg PO DAILY #14 caps 04/11/24 04/14/24 oxyCODONE, 4 tabs/btl [Roxicodone, 5 mg PO DISPENSE #4 caps 04/15/24 4 tabs/btl] Previous Rx's Medication Instructions Recorded tamsulosin 0.4 mg capsule (Flomax) 0.4 mg PO DAILY #14 caps 04/11/24 oxyCODONE, 4 tabs/btl [Roxicodone, 5 mg PO DISPENSE #4 caps 04/15/24 4 tabs/btl] Allergies Allergy/AdvReac Type Severity Reaction Status Date / Time No Known Allergies Allergy Verified 04/14/24 22:38 General Stated Complaint: Abd Prob KATHERINE: 3 Review of Systems Narrative: Per HPI Exam Narrative Exam Narrative: Const: WDWN male in NAD. VS per triage. HEENT: NC/AT. Normal facial exam. Neck: Supple. Trachea midline. Lungs: Normal respiratory effort. GI: Soft/ND/NT. Neuro: A+O x 3. Normal speech, mentation, gait. Cranial nerves II - XII grossly intact. No gross motor or sensory deficit. Ext: No C/C/E. Course Vital Signs Vital signs: Vital Signs Temperature 97.9 F 04/14/24 22:36 Pulse 67 04/14/24 22:36 Respiratory Rate 18 04/14/24 22:36 Blood Pressure 117/68 04/14/24 22:36 Pulse Oximetry 96 04/14/24 22:36 Temperature 97.9 F 04/14/24 22:36 Temperature Source Temporal Artery Scan 04/14/24 22:36 Pulse 67 04/14/24 22:36 Respiratory Rate 18 04/14/24 22:36 Blood Pressure 117/68 04/14/24 22:36 Pulse Oximetry 96 04/14/24 22:36 Oxygen Delivery Method Room Air 04/14/24 22:36 Oxygen Flow Rate 0 04/14/24 22:36 Medical Decision Making Patient returns to ED with continued pain from a known left distal ureteral stone. Had done okay over the holiday weekend but today has been very uncomfortable and cannot sleep tonight. No fever or vomiting. Does have follow-up with primary care but did not receive callback from urology clinic. Looks well overall just uncomfortable. Will place IV and repeat a BMP, CBC, urinalysis. Fluids, ketorolac, morphine ordered. Patient's pain much improved after ketorolac, morphine, fluids. Now rating pain only 1. His white count remains normal. His urine is not infected. His creatinine did bump from 1.3 to 1.8. Will have patient continue alternating acetaminophen with ibuprofen as he was before. He is to continue the tamsulosin. Will be given a to go bottle from the ED of oxycodone for severe breakthrough pain. He is aware that it is a narcotic and can be used only as directed. He has follow-up with his primary care. Will also reach back out to urology clinic. Return precautions provided. Medical Records Medical records reviewed: Yes I reviewed the patient's medical records. Medical records narrative: visit from Saturday Lab Data Lab results reviewed: Yes I reviewed the patient's lab results. [facility] All Active Problems (Updated 04/15/24 @ 00:15 by Maximino Noble MD) Disequilibrium (Acute) Vertigo (Acute) Skin mole (Acute) Inguinal hernia (Acute) Lesion of adrenal gland (Acute) Left ureteral stone (Acute) Kidney lesion (Acute) Diaphragmatic hernia (Acute) History of excessive cerumen (Acute) Tonsillar hypertrophy (Acute) Hearing impairment (Acute) Conductive hearing loss, external ear (Acute) Migraine aura without headache (Acute 06/06/16) Screening for colon cancer (Acute) The patient is here for Colonoscopy pre-op. His last screening date is unknown that was remarkable for polyps. He has no family history of colon cancer. He has not had any bowel habit changes. Discussed colonoscopy bowel prep as well as the procedure. Discussed possible complications of the procedure; bleeding, perforation and sedation/medication risks. Questions were answered to patient?s satisfaction. No guarantees were implied or given. Medical History Hypertension Hyperlipidemia Anxiety JESSICA (obstructive sleep apnea) Surgical History Hx of hernia repair 2016 H/O colonoscopy (09/26/18) dr keller, no abnormalities, repeat 10 years Family History Father Hyperlipidemia Mother Diabetes Hypertension Stroke Other Heart disease Social History Smoking/Tobacco Use Status: Never Smoking risk assessment performed?: Yes Alcohol Intake: current Alcohol Intake frequency: a few times a month Drug use: Never Household members: spouse Pets and animals: Yes Pets and animals: bird(s) What is your relationship status?: Panel score (0-1 are the most socially isolated patients): 1
[2024-04-14 23:13] LABS: Abs Immature Grans 0.04 10^3/uL (0.0-0.06); Absolute Basophil Count 0.02 10^3/uL (0.0-0.2); Absolute Eosinophil Count 0.24 10^3/uL (0.0-0.7); Absolute Lymphocyte Count 1.61 10^3/uL (1.2-3.4); Absolute Monocyte Count 0.99 10^3/uL (0.1-0.8); Absolute Neutrophil Count 6.46 10^3/uL (1.2-6.7); Basophils % 0.2 %; Eosinophils % 2.6 %; HCT 43.5 % (40.0-50.0); HGB 14.5 g/dL (13.5-17.5); Immature Grans % 0.4 %; Lymphocytes % 17.2 %; MCH 31.8 pg (27.0-33.0); MCHC 33.3 % (32.0-36.0); MCV 95 fL (80-95); MPV 9.9 fL (8.0-11.0); Monocytes % 10.6 %; Platelet Count 420 10^3/uL (130-400); RBC 4.56 10^6/uL (4.36-5.78); RDW 13.2 % (11.8-14.1); RDW-SD 46.6 fL; WBC 9.36 10^3/uL (4.4-10.8)
[2024-04-14] MEDS: Lactated Ringers 1,000 ML 1000 ML IV (23:16)
[2024-04-14] MEDS: MORPHine 4 MG/ML SYR IVP (23:17)
[2024-04-14] MEDS: Ketorolac 15 MG/ML VIAL IVP (23:17)
[2024-04-14 23:23] LABS: Anion Gap 7.4 mmol/L (3-11); BUN 25 mg/dL (7-18); CO2 25.6 mmol/L (21.0-32.0); CREATININE 1.8 mg/dL (0.70-1.30); Calcium 7.7 mg/dL (8.5-10.1); Chloride 107 mmol/L (98-107); Glucose 88 mg/dL (74-106); Potassium 3.7 mmol/L (3.5-5.1); Sodium 140 mmol/L (136-145)
[2024-04-14 23:36] LABS: Bilirubin Negative (Negative); Blood Trace-lysed (Negative); Clarity Clear (Clear); Glucose Negative (Negative); Ketones Negative (Negative); Leukocyte Esterase Negative (Negative); Nitrite Negative (Negative); Specific Gravity 1.015 (1.005-1.025); Urobilinogen 0.2 mg/dL (Up to 0.2); pH 5.5 (5-8)
[2024-04-14 23:57] LABS: Bacteria Rare HPF (Negative); C & S Indicated? No; Crystals Negative HPF (Negative); Epithelial Cells Rare HPF (Negative); Mucus Negative (Negative); RBC 0-2 HPF (0-2); WBC 0-2 HPF (0-5)
[2024-04-15 00:33] VITALS: BP 130/80; PULSE 72; RESP 16; TEMP 36.8; O2SAT 98
== END 2024-04-15 00:37 | disposition home or self-care (01) ==
PROVIDERS: Emergency Provider Emergency Medicine; PCP Family Medicine
DX: R10.32 Left lower quadrant pain (principal); N20.1 Calculus of ureter; I10 Essential (primary) hypertension; E78.5 Hyperlipidemia, unspecified; F41.9 Anxiety disorder, unspecified; Z79.899 Other long term (current) drug therapy
CPT/HCPCS: 80048; 96361; 96374; 96375; 99284; 81003; 81015; 85025; J1885; J2270

== ENCOUNTER → 2024-05-01 15:08 | Outpatient (CLI) | payer BC, SELFPAY ==
--- NOTE | 2024-05-01 14:45 | DI.RAD_ITS ---
Exam(s) XR ABDOMEN FLAT PLATE EXAM: XR ABDOMEN FLAT PLATE CLINICAL HISTORY: monitor known stone, LT URETERAL STONE, N20.1 CALCULUS OF URETER. TECHNIQUE: 2D digital imaging was performed. COMPARISON: CT CT THORAX ABD/PEL CTA from 04/11/2024 FINDINGS: Single AP supine view of the abdomen. There are multiple air-filled bowel loops throughout the abdomen. Kidneys are obscured by bowel gas and fecal material in the colon. With respect to the ureter, there are multiple calcifications in the lower right pelvis which have th e appearance of wound phleboliths. With respect to the previously described small calculus in the lower left ureter on the CT scan of , it is not seen on today's plain film. IMPRESSION: Nonvisualization of the previously described small calculus in the lower left ureter seen on CT scan of 04/11/2024 DATA REPOSITORY: RADIATION DOSE DELIVERED:
== END ==
PROVIDERS: PCP Family Medicine; Visit Provider Urology
DX: N20.1 Calculus of ureter (principal)
CPT/HCPCS: 74018

== ENCOUNTER 2024-12-29 13:04 | Outpatient (REF) | payer BC, SELFPAY ==
[2024-12-29 14:41] LABS: ALT 36 U/L (16-63); AST 24 U/L (15-37); Albumin 4.2 g/dL (3.4-5.0); Alkaline Phosphatase 74 U/L (46-116); Anion Gap 7.6 mmol/L (3-11); BUN 21 mg/dL (7-18); Bilirubin, Total 0.89 mg/dL (0.2-1.0); CO2 30.4 mmol/L (21.0-32.0); CREATININE 1.2 mg/dL (0.70-1.30); Calcium 9.7 mg/dL (8.5-10.1); Calculated LDL 143 mg/dL (<100); Chloride 102 mmol/L (98-107); Cholesterol 221 mg/dL (<200); Estimated GFR 70.98 (mL/min/1.73m2); Glucose 102 mg/dL (74-106); HDL Cholesterol 46 mg/dL (40-60); Potassium 5.3 mmol/L (3.5-5.1); Sodium 140 mmol/L (136-145); Total Protein 7.9 g/dL (6.4-8.2); Triglyceride 164 mg/dL (<150)
== END 2024-12-29 13:05 | disposition home or self-care (01) ==
LOC: NCHCN 13:04
PROVIDERS: PCP Family Medicine; Visit Provider Family Medicine
DX: I10 Essential (primary) hypertension (principal); E78.5 Hyperlipidemia, unspecified
CPT/HCPCS: 80053; 80061

== ENCOUNTER 2025-01-06 12:21 | Outpatient (REF) | payer BC, SELFPAY ==
[2025-01-06 17:20] LABS: C-Reactive Protein < 0.50 mg/dL (<or=0.5)
[2025-01-06 21:31] LABS: Rheumatoid Factor <8.6 IU/mL (<12.0)
[2025-01-07 10:14] LABS: Cyclic Citrullinated Peptide <2.5 U/mL (<5.0)
[2025-01-07 13:40] LABS: ANA Interpretation Negative (Negative)
[2025-01-09 16:17] LABS: Anaplasma phagocytophilum Negative (Negative); B. miyamotoi PCR Negative (Negative); Babesia divergens/MO-1 Negative (Negative); Babesia duncani Negative (Negative); Babesia microti Negative (Negative); Ehrlichia chaffeensis Negative (Negative); Ehrlichia ewingii/canis Negative (Negative); Ehrlichia muris eauclairensis Negative (Negative)
== END 2025-01-06 12:22 | disposition home or self-care (01) ==
LOC: NCHCN 12:21
PROVIDERS: PCP Family Medicine; Visit Provider Family Medicine
DX: M25.59 Pain in other specified joint (principal)
CPT/HCPCS: 86200; 87798; 86038; 86140; 86431

== ENCOUNTER 2025-02-04 11:40 | Outpatient (REF) | payer BC, SELFPAY ==
[2025-02-04 14:55] LABS: ALT 35 U/L (16-63); AST 24 U/L (15-37)
[2025-02-05 11:19] LABS: Lyme Ab w Rflx to Lyme Confirm Negative (Negative)
== END 2025-02-04 11:41 | disposition home or self-care (01) ==
LOC: NCHCN 11:40
PROVIDERS: PCP Family Medicine; Visit Provider Family Medicine
DX: E78.5 Hyperlipidemia, unspecified (principal); M25.59 Pain in other specified joint
CPT/HCPCS: 84450; 84460; 86618